=== PATIENT | female | born 1970 ===

== ENCOUNTER 2024-06-22 05:20 | Day surgery (SDC) | payer OTHER ==
[2024-06-13 08:48] VITALS: BP 151/86
[~2024-06-22] VITALS: Ht 160 cm; Wt 75.7 kg
[~2024-06-22 05:20] MED LIST: COZAAR25 MG PO
[2024-06-22] MEDS ORDERED: METRONIDAZOLE/SODIUM CHLORIDE 500 MG/100 ML PIGGYBACK IV ONE (08:00)
[2024-06-22] MEDS ORDERED: CEFOXITIN SODIUM 2,000 MG VIAL IV ONE (08:15)
[2024-06-22] MEDS ORDERED: POVIDONE-IODINE 118 ML BOTT TOP ONE (08:15)
[2024-06-22] MEDS ORDERED: MORPHINE SULFATE 4 MG/ML VIAL IV PRN (08:45)
[2024-06-22] MEDS ORDERED: PROMETHAZINE HCL 50 MG/ML AMPUL IM ONE (08:45)
[2024-06-22] MEDS ORDERED: MORGIDOX100 MG PO (08:48)
[2024-06-22] MEDS ORDERED: NAPR500T14 PO (08:48)
== END 2024-06-22 13:30 | disposition home or self-care (01) ==
LOC: CIR.AMB 05:20
PROVIDERS: ATTEND Obstetrics & Gynecology
DX: D25.0 Submucous leiomyoma of uterus (principal); N95.0 Postmenopausal bleeding; N84.0 Polyp of corpus uteri